=== PATIENT | female | born 1955 | race African-American/Black ===

== ENCOUNTER → 2016-06-05 | Outpatient (CLI) | payer MEDICARE, MEDICAID ==
[~2016-06-05] MED LIST: ACTOS 15MG TAB15 MG PO; ADVAIR 100/28 DISKU1 IH; ASPIRIN E.C. 8181 MG PO; ATIVAN 0.50.5 MG/TAB PO; CARAFATE 1GM1 G PO; GLUCOPHAGE1000 MG PO; IBU800 M1 PO; LANTUS100 U/ML SQ; METFORMIN850 MG PO; MIRALAX PA17 GM/Dose PO; MOTRIN800 MG PO; NAPROXEN 3375 MG/TAB PO; NEXIUM 20MG20 MG PO; NORCO 325 MG-51 TAB PO; NOVOLOG 100U100 U/M1 SQ; PERCOCET 325 MG1 TA2 PO; PRINIVIL20 MG PO; SENOKOT S 50 MG1 TAB PO; ULTRAM 50MG TAB50 MG PO; VALIUM 5MG T5 MG/TAB PO; ZOFRAN 4MG T4 MG/TAB PO
== END ==
LOC: COL.RAD 11:26
DX: D44.0 Neoplasm of uncertain behavior of thyroid gland (principal); E01.0 Iodine-deficiency related diffuse (endemic) goiter; R63.5 Abnormal weight gain
CPT/HCPCS: A9516

== ENCOUNTER 2016-08-12 19:55 | Emergency (ER) | payer MEDICARE, MEDICAID ==
[~2016-08-12] VITALS: Ht 157.5 cm; Wt 86.4 kg
[2016-08-12 20:02] VITALS: TEMP 97.1
[2016-08-12 20:31] LABS: BASO # 0.1 (0.0-0.2); BASO % 0.6 % (0.0-2.0); EOS # 0.5 (0.0-0.7); EOS % 4.1 % (0-4.0); GRAN # 7.9 (1.4-6.5); GRAN % 62.3 % (42.2-75.2); HEMATOCRIT 39.6 % (37.0-47.0); LYMPH # 3.5 (1.2-3.4); LYMPH % 27.8 % (20.0-51.0); MEAN CELL VOLUME 85 fl (80.0-100.0); MEAN CORPUSCULAR HEMOGLOBIN 28 pg (27.0-31.0); MEAN CORPUSCULAR HGB CONC 33 g/dl (33.0-37.0); MEAN PLATELET VOLUME 9.1 fl (7.4-10.4); MONO # 0.6 (0.1-0.6); MONO % 4.8 % (1.7-9.3); PLATELET COUNT 307 K/mm3 (130-400); RED BLOOD COUNT 4.66 M/mm3 (4.10-5.30); REDCELL DISTRIBUTION WIDTH-CV 14.3 % (11.5-14.5); WHITE BLOOD COUNT 12.7 K/mm3 (4.8-10.8)
[2016-08-12 20:42] LABS: INR 0.9 (0.8-3.0); PROTHROMBIN TIME 10.1 SECONDS (9.7-12.8)
[2016-08-12 20:45] LABS: PARTIAL THROMBOPLASTIN TIME 27.5 SECONDS (26.0-37.0)
[2016-08-12 20:58] LABS: ADJUSTED CALCIUM 8.8 mg/dL (8.4-10.2); ALANINE AMINOTRANSFERASE 30 U/L (9-52); ALBUMIN 3.7 gm/dL (3.5-5.0); ALKALINE PHOSPHATASE 93 U/L (50-136); ANION GAP 11 mmol/L (7-16); BILIRUBIN,TOTAL 0.5 mg/dL (0.0-1.0); BLOOD UREA NITROGEN 17 mg/dL (7-17); C-REACTIVE PROTEIN 2.2 mg/dL (0.0-0.9); CALCIUM 8.6 mg/dL (8.4-10.2); CARBON DIOXIDE 29 mmol/L (22-30); CHLORIDE 102 mmol/L (98-107); CREATININE, serum 0.92 mg/dL (0.52-1.25); GLUCOSE 152 mg/dL (74-106); POTASSIUM 3.9 mmol/L (3.4-5.0); SODIUM 142 mmol/L (137-145)
[2016-08-12 21:07] LABS: TROPONIN-I < 0.012 ng/mL (0.000-0.034)
[2016-08-12] MEDS ORDERED: NORCO 325 MG-51 TAB PO (23:12)
[2016-08-12 23:35] VITALS: BP 130/82; PULSE 81
== END 2016-08-12 23:36 | disposition home or self-care (01) ==
LOC: COL.ER 19:55
PROVIDERS: Family Medicine
DX: R07.9 Chest pain, unspecified (principal); M25.511 Pain in right shoulder; I10 Essential (primary) hypertension; E11.9 Type 2 diabetes mellitus without complications; K21.9 Gastro-esophageal reflux disease without esophagitis
CPT/HCPCS: A9284; J2270; Q9967

== ENCOUNTER 2016-12-12 14:15 | Outpatient (RCR) | payer MEDICARE, MEDICAID | END 2017-01-16 | disposition home or self-care (01) | LOC: WSST | DX: R49.0 Dysphonia (principal) | CPT/HCPCS: G9171-GN; G9172-GN ==

== ENCOUNTER 2017-04-12 22:37 | Emergency (ER) | payer MEDICARE, MEDICAID ==
[~2017-04-12] VITALS: Ht 157.5 cm; Wt 84.1 kg
[2017-04-12 22:45] VITALS: BP 141/67; TEMP 97
[2017-04-13] MEDS ORDERED: CEPHALEXIN500 M1 PO (00:40)
[2017-04-13] MEDS ORDERED: ULTRAM 50MG TAB50 MG PO (00:40)
[2017-04-13] MEDS ORDERED: CELEBREX 200MG200 MG PO (01:02)
[2017-04-13] MEDS ORDERED: TRULICITY1.5 MG/0.5 SQ (01:02)
[2017-04-13 01:14] VITALS: PULSE 71
== END 2017-04-13 01:14 | disposition home or self-care (01) ==
LOC: COL.ER 22:37
DX: L02.214 Cutaneous abscess of groin (principal); E11.9 Type 2 diabetes mellitus without complications; I10 Essential (primary) hypertension; E78.5 Hyperlipidemia, unspecified; Z86.73 Personal history of transient ischemic attack (TIA), and cerebral infarction without residual deficits; Z90.89 Acquired absence of other organs; Z98.51 Tubal ligation status; Z87.891 Personal history of nicotine dependence; Z79.82 Long term (current) use of aspirin; Z79.4 Long term (current) use of insulin

== ENCOUNTER → 2017-04-18 | Outpatient (CLI) | payer MEDICARE, MEDICAID ==
[~2017-04-18] MED LIST changes: +CELEBREX 200MG200 MG PO; +CEPHALEXIN500 M1 PO; +TRULICITY1.5 MG/0.5 SQ
== END ==
LOC: MC.RAD 13:20
DX: Z12.31 Encounter for screening mammogram for malignant neoplasm of breast (principal); N64.89 Other specified disorders of breast

== ENCOUNTER → 2017-04-23 | Outpatient (CLI) | payer MEDICARE, MEDICAID | LOC: MC.RAD 09:26 | DX: N64.89 Other specified disorders of breast (principal) ==

== ENCOUNTER → 2017-05-15 | Outpatient (CLI) | payer MEDICARE, MEDICAID | LOC: MC.RAD 08:07 | DX: N63.20 Unspecified lump in the left breast, unspecified quadrant (principal); Z98.82 Breast implant status ==

== ENCOUNTER 2018-01-22 12:28 | Emergency (ER) | payer MEDICARE ==
[~2018-01-22] VITALS: Ht 157.5 cm; Wt 86.4 kg
[2018-01-22 13:28] LABS: HEMOGLOBIN 13.5 g/dl (12.5-16.0); MEAN CELL VOLUME 84 fl (80.0-100.0); MEAN CORPUSCULAR HEMOGLOBIN 28 pg (27.0-31.0); MEAN CORPUSCULAR HGB CONC 34 g/dl (33.0-37.0); MEAN PLATELET VOLUME 9.8 fl (7.4-10.4); PLATELET COUNT 269 K/mm3 (130-400); RED BLOOD COUNT 4.76 M/mm3 (4.10-5.30); REDCELL DISTRIBUTION WIDTH-CV 14.6 % (11.5-14.5)
[2018-01-22 13:35] LABS: ALBUMIN 3.5 gm/dL (3.5-5.0); BILIRUBIN,TOTAL 0.7 mg/dL (0.0-1.0); CREATININE, serum 0.99 mg/dL (0.52-1.25); POTASSIUM 3.9 mmol/L (3.4-5.0); TOTAL PROTEIN 6.9 gm/dL (6.4-8.2)
[2018-01-22 13:49] LABS: BAND 26 % (0-10); LYMPHOCYTE 4 % (20.0-51.0); NEUTROPHILS 66 % (42.0-75.2); PLATELET ESTIMATE NORMAL (NORMAL)
[2018-01-22 14:09] LABS: MUCOUS Present /lpf; PH 6 (5-8); SQUAMOUS EPITHELIAL None Seen /hpf; URINE APPEARANCE Clear; URINE BACTERIA None Seen /hpf; URINE BILIRUBIN Negative (NEGATIVE); URINE BLOOD 1+ (NEGATIVE); URINE COLOR Yellow; URINE GLUCOSE Negative (NEGATIVE); URINE KETONE Negative (NEGATIVE); URINE LEUKOCYTE ESTERASE Negative (NEGATIVE); URINE NITRATE Negative (NEGATIVE); URINE PROTEIN(semi-quant) Negative (NEGATIVE); URINE UROBILINOGEN Negative (NEGATIVE)
[2018-01-22 14:18] LABS: COLLECTION METHOD CATHETER
[2018-01-22 14:39] LABS: ARTERIAL BLD GAS O2 SATURATION 95.4 % (92-100); ARTERIAL BLOOD GAS BASE EXCESS -3.1 (-2-2); ARTERIAL BLOOD GAS HCO3 20.2 meq/L (22-26); ARTERIAL BLOOD GAS PCO2 30.8 mmHg (35-45); ARTERIAL BLOOD GAS PO2 80.1 mmHg (80-100); ARTERIAL BLOOD GAS pH 7.43 (7.35-7.45)
[2018-01-22] MEDS ORDERED: ROXICODONE 55 MG/TAB PO (15:03)
[2018-01-22] MEDS ORDERED: NATURAL SENNA8.6 MG PO (15:04)
[2018-01-22] MEDS ORDERED: MAGNESIUM250 M1 PO (15:04)
[2018-01-22] MEDS ORDERED: DOXYCYCLINE 10100 MG PO (15:04)
[2018-01-22] MEDS ORDERED: LINZESS145CAP (15:05)
[2018-01-22] MEDS ORDERED: FEMARA PO (15:05)
[2018-01-22] MEDS ORDERED: LIPITOR 40MG TA40 MG PO (15:06)
[2018-01-22] MEDS ORDERED: IBU800 M1 PO (15:07)
[2018-01-22 17:40] VITALS: TEMP 100.1
[2018-01-22 19:52] VITALS: BP 121/67; PULSE 118
== END 2018-01-22 19:52 | disposition other institution (70) ==
LOC: COL.ER 12:28
PROVIDERS: Emergency Medicine
DX: A41.9 Sepsis, unspecified organism (principal); I10 Essential (primary) hypertension; E11.9 Type 2 diabetes mellitus without complications; J45.909 Unspecified asthma, uncomplicated; G47.33 Obstructive sleep apnea (adult) (pediatric); K21.9 Gastro-esophageal reflux disease without esophagitis; Z79.891 Long term (current) use of opiate analgesic; Z79.1 Long term (current) use of non-steroidal anti-inflammatories (NSAID); Z79.4 Long term (current) use of insulin
CPT/HCPCS: J0692; J1170; J3370; J7030; J7040; J7050; Q9967

== ENCOUNTER 2018-08-07 11:36 | Inpatient (IN) | payer MEDICARE ==
[~2018-08-07] VITALS: Ht 157.5 cm; Wt 95.3 kg
[2018-08-07] VITALS (342 sets, daily range): BP systolic 154–164; BP diastolic 65–72; PULSE 108–125; TEMP 100.1–102.4; O2SAT 92–100
[~2018-08-07 11:36] MED LIST changes: +DOXYCYCLINE 10100 MG PO; +FEMARA PO; +LINZESS145CAP; +LIPITOR 40MG TA40 MG PO; +MAGNESIUM250 M1 PO; +NATURAL SENNA8.6 MG PO; +ROXICODONE 55 MG/TAB PO
[2018-08-07] MEDS ORDERED: TYLENOL 500MG500 MG PO (12:38)
[2018-08-07 13:08] LABS: BILIRUBIN,TOTAL 0.9 mg/dL (0.0-1.0); CALCIUM 9.6 mg/dL (8.4-10.2); CREATININE, serum 0.96 (0.52-1.25); POTASSIUM 4.1 mmol/L (3.4-5.0); TOTAL PROTEIN 7.8 gm/dL (6.4-8.2)
[2018-08-07 13:16] LABS: HEMOGLOBIN 15.2 g/dl (12.5-16.0); MEAN CELL VOLUME 85 fl (80.0-100.0); MEAN CORPUSCULAR HEMOGLOBIN 28 pg (27.0-31.0); MEAN CORPUSCULAR HGB CONC 33 g/dl (33.0-37.0); MEAN PLATELET VOLUME 9.6 fl (7.4-10.4); PLATELET COUNT 247 K/mm3 (130-400); RED BLOOD COUNT 5.42 M/mm3 (4.10-5.30); REDCELL DISTRIBUTION WIDTH-CV 16.5 % (11.5-14.5)
[2018-08-07 13:29] LABS: COLLECTION METHOD CATHETER
[2018-08-07 13:45] LABS: MUCOUS Present /lpf; PH 7 (5-8); SQUAMOUS EPITHELIAL 0-2 /hpf; URINE APPEARANCE Clear; URINE BACTERIA None Seen /hpf; URINE BILIRUBIN Negative (NEGATIVE); URINE BLOOD Negative (NEGATIVE); URINE COLOR Yellow; URINE GLUCOSE Negative (NEGATIVE); URINE KETONE Negative (NEGATIVE); URINE LEUKOCYTE ESTERASE Negative (NEGATIVE); URINE NITRATE Negative (NEGATIVE); URINE PROTEIN(semi-quant) 1+ (NEGATIVE)
[2018-08-07 13:53] LABS: ANISOCYTOSIS 1+; BAND 1 % (0-10); LYMPHOCYTE 7 % (20.0-51.0); NEUTROPHILS 92 % (42.0-75.2); PLATELET ESTIMATE NORMAL (NORMAL)
[2018-08-07] MEDS ORDERED: PROTONIX 40MG T40 MG PO (15:26)
[2018-08-07] MEDS ORDERED: B COMPLEX #11 TA1 PO (15:27)
[2018-08-07] MEDS ORDERED: THE MEDICINE S200 M2 PO (15:28)
[2018-08-07] MEDS ORDERED: NOVOLOG 100U100 U/M1 SQ (15:28)
[2018-08-07] MEDS ORDERED: MULTI VITAMINS1 TAB PO (15:28)
--- NOTE | 2018-08-07 17:03 | NUR ---
Report recieved from SHASTA Henson
--- NOTE | 2018-08-07 17:08 | NUR ---
Pt in ED - will go to CT scan for CT Head and Spinal prior to coming to ICU.
--- NOTE | 2018-08-07 18:00 | NUR ---
Pt arrived on ED cart with CUPS and SHASTA Henson. MD Juanpbalo and MD Kevin here as pt arrived to assess. Pt unable to move self to ICU bed - slideboard utilized without pulling lines or difficulty. Pt unable to verbally acknowledge or deny questions - pt does move head to answer yes or no. Pt exhibiting neck stiffness but able to lift head off bed and move side to side while moaning. Droplet isolation precautions followed. Pupils PERRLA with no jaundice. Mouth dry without mucosa integrity breakdown. Bra removed to assess bilateral breast masectomy site - skin dry, intact, no drainage or tenderness. Bilateral breast TAL drains draining straw colored fluids, insertion site CDI. Abdomen soft, Bowel sounds all 4quadrants, no tenderness on palpation. Extremity cap-refill <3sec. 2+ pedal/radial pulses. S1S2 heart sounds, tachycardia noted (MD Juanpablo aware of tachycardia). Lumbar puncture site stable with no drainage, bandaid in place is CDI. All Skin intact without pressure injuries or breakdown. at bedside, notified of ICU policy regarding visiting hours. Alvarez catheter insertion attempt unsucessful, sterile precautions kept without breach. PICC insertion site stable, CDI, with JANI bandage in place. Both ports draw and flush with ease. Bedside report given to SHASTA Youssef at 1915, reminded of visiting hour policy. Call light within reach
[2018-08-07 18:37] LABS: INR 1.2 (0.8-3.0); PROTHROMBIN TIME 13.1 SECONDS (9.7-12.8)
[2018-08-07 18:38] LABS: GLUCOSE,CSF 77 mg/dL (40-70); TOTAL PROTEIN,CSF 36 mg/dL (15-45)
[2018-08-07 19:20] LABS: CSF APPEARANCE CLEAR; CSF COLOR COLORLESS; CSF RBC 8 /mm3 (0-0)
[2018-08-07 19:21] LABS: CSF APPEARANCE CLEAR; CSF COLOR COLORLESS; CSF RBC 1 /mm3 (0-0)
[2018-08-07 19:25] LABS: CSF MONONUCLEAR 100 % (70-100); CSF MONONUCLEAR 75 % (70-100); CSF POLYMORPHONUCLEAR 0 % (0-6); CSF POLYMORPHONUCLEAR 25 % (0-6)
--- NOTE | 2018-08-07 19:45 | NUR ---
Assessment complete; Patient drowsy but will follow verbal commands. Will attempt to respond verbally to questions but speech is incomprehensable. at bedside. T 102.4. Has several blankets on and room is warm. Removed and blanket and placed a cool cloth on forehead. Will continue to monotir.
--- NOTE | 2018-08-07 20:30 | NUR ---
Temp rechecked and was 100.2 axillary. Will continue to monitor.
[2018-08-07] MEDS ORDERED: VITAMIN D 1001000 IU PO (20:59)
--- NOTE | 2018-08-07 23:08 | NUR ---
PT PLACED ON OUR HOME AUTO CPAP UNIT AT THIS TIME PER POLICY. PT STATES THAT SHE IS NON-COMPLIANT AT HOME, HOWEVER, SHE WILL WEAR OUR HOME CPAP UNIT DURING HER STAY. HUMIDITY IN PLACE, MEDIUM MASK USED GOOD FIT, PLUGGED UNIT INTO RED OUTLET.
[2018-08-08] VITALS (1434 sets, daily range): BP systolic 116–156; BP diastolic 70–81; PULSE 77–110; TEMP 98–99.7; O2SAT 90–100
--- NOTE | 2018-08-08 00:05 | NUR ---
Assessment complete; Awakens on commands and will follow instructions, however continues to be drowsy and weak, and not communicating verbally. Occasionally heard making quiet moaning noises when performing cares. However appears to rest comfortably when not disturbed. Currenlty on CPAP. Will continue to monitor.
[2018-08-08 00:35] LABS: TRICYCLIC ANTIDEPRESS URINE NEGATIVE
--- NOTE | 2018-08-08 01:00 | NUR ---
E-Icu notified that patient had temp of 102.4 at 1999. Has since come down to 99.4. No orders at this time.
[2018-08-08 05:13] LABS: MEAN CELL VOLUME 86 fl (80.0-100.0); MEAN CORPUSCULAR HGB CONC 32 g/dl (33.0-37.0); MEAN PLATELET VOLUME 9.8 fl (7.4-10.4); PLATELET COUNT 208 K/mm3 (130-400); RED BLOOD COUNT 4.17 M/mm3 (4.10-5.30); REDCELL DISTRIBUTION WIDTH-CV 16.5 % (11.5-14.5)
[2018-08-08 05:18] LABS: INR 1.4 (0.8-3.0); PROTHROMBIN TIME 16.3 SECONDS (9.7-12.8)
[2018-08-08 05:25] LABS: HEMATOCRIT 35.8 % (37.0-47.0); HEMOGLOBIN 11.5 g/dl (12.5-16.0); MEAN CORPUSCULAR HEMOGLOBIN 28 pg (27.0-31.0)
[2018-08-08 05:27] LABS: ALANINE AMINOTRANSFERASE 27 U/L (9-52); ALBUMIN 2.6 gm/dL (3.5-5.0); ALKALINE PHOSPHATASE 82 U/L (50-136); ANION GAP 5 mmol/L (7-16); AST,SGOT 21 U/L (15-37); BLOOD UREA NITROGEN 15 mg/dL (7-17); CALCIUM 7.4 mg/dL (8.4-10.2); CARBON DIOXIDE 26 mmol/L (22-30); CHLORIDE 106 mmol/L (98-107); CREATININE, serum 1.05 (0.52-1.25); GLUCOSE 114 mg/dL (74-106); POTASSIUM 3.5 mmol/L (3.4-5.0); SODIUM 137 mmol/L (137-145); TOTAL PROTEIN 5.4 gm/dL (6.4-8.2)
[2018-08-08 05:39] LABS: C-REACTIVE PROTEIN 19.2 mg/dL (0.0-0.9); TROPONIN-I < 0.012 ng/mL (0.000-0.035)
--- NOTE | 2018-08-08 05:39 | NUR ---
Notified E-Icu of WBC count of 28 this am. Reported pt is on antibiotics and blood cultures were drawn 08/07/18.
--- NOTE | 2018-08-08 06:25 | NUR ---
Dr. Brown at bedside to see patient.
--- NOTE | 2018-08-08 07:00 | NUR ---
Bedside report received from SHASTA Youssef.
--- NOTE | 2018-08-08 07:20 | NUR ---
Bedside report given to SHASTA Lao. Patient care transfered.
[2018-08-08 07:35] LABS: BAND 13 % (0-10); LYMPHOCYTE 9 % (20.0-51.0); NEUTROPHILS 73 % (42.0-75.2); PLATELET ESTIMATE NORMAL (NORMAL)
[2018-08-08 07:36] LABS: ANISOCYTOSIS 1+
[2018-08-08 07:40] LABS: MAGNESIUM 1.5 mg/dL (1.6-2.3); PHOSPHOROUS 3.7 mg/dL (2.5-4.5)
--- NOTE | 2018-08-08 07:42 | NUR ---
Lexis, speech therapy here to work with patient.
--- NOTE | 2018-08-08 08:00 | NUR ---
Assessment complete, patient resting quietly with at bedside. Patient reports pain to right breast, bilateral alma drains in place, specimens sent to lab from both (marked right and left.) AM care complete, patient repositioned for comfort. Call light within reach.
--- NOTE | 2018-08-08 09:27 | NUR ---
Initial visit; Human Services Assistant introduced herself and informed patient and of the availability of spiritual care. Patient's Jet Inspector has been contacted and Human Services Assistant is available at their request.
--- NOTE | 2018-08-08 15:26 | NUR ---
ANGELA student met with patient and patient's (Giuliano) to complete intake. Patient lives in [place] with her . Patient's PCP is Dr. Appiah and she receives her medications from the [facility] in [place]. Patient does not regularly use any assistive devices and reports independence with ADLs prior to hospitalization. Patient states she does not have a completed DPOA-HC and was not interested in completing one at this time as her is legal next of kin and she would want him to make the decisions in those situations. ANGELA student discussed the possibility of a short rehab stay at a custodial facility upon discharge if doctor and PT recommend. Patient and Patient's did not want to discuss skilled facilities at this time. ANGELA to continue to follow.
--- NOTE | 2018-08-08 18:00 | NUR ---
Bilateral alma drains pulled, tips intact, sites cleaned with chloraprep, gauze and foam tape applied to both. Right site had purulent drainage noted from site.
--- NOTE | 2018-08-08 19:44 | NUR ---
Bedside report given to SHASTA Bullock.
--- NOTE | 2018-08-08 20:00 | NUR ---
Shift assessment complete at this time. Plan of care reviewed at bedside with patient et family. Additional time taken to address any other needs or concerns. Vitals stable at this time. Reports R side pain, see EMAR for pain medication documentation. Denies any other discomforts. Will continue to monitor.
[2018-08-09] VITALS (525 sets, daily range): BP systolic 117–121; BP diastolic 60–73; PULSE 74–85; TEMP 97.8–98.1; O2SAT 85–100
--- NOTE | 2018-08-09 | NUR ---
Shift reassessment complete at this time. No changes from previous assessment. Vitals stable. Reports minor 1-2/10 R side pain and declines any intervention at this time. Pt denies any other discomforts at this moment. Will continue to monitor.
--- NOTE | 2018-08-09 04:00 | NUR ---
Shift reassessment complete at this time. No changes from previous assessment noted. Vitals stable. Pt reports moderate R side pain at 5/10 severity, see EMAR documentation for medication intervention. Denies any other discomforts. Will continue to monitor.
[2018-08-09 05:04] LABS: ARTERIAL BLD GAS TCO2 CT 21.9; ARTERIAL BLOOD GAS BASE EXCESS -3.8 (-2-2); ARTERIAL BLOOD GAS HCO3 20.8 meq/L (22-26); ARTERIAL BLOOD GAS PCO2 36.5 mmHg (35-45); ARTERIAL BLOOD GAS PO2 69.5 mmHg (80-100); ARTERIAL BLOOD GAS pH 7.37 (7.35-7.45)
[2018-08-09 05:10] LABS: BASO # 0.1 (0.0-0.2); BASO % 0.3 % (0.0-2.0); EOS # 0.5 (0.0-0.7); GRAN # 14.3 (1.4-6.5); GRAN % 83.1 % (42.2-75.2); HEMOGLOBIN 10.4 g/dl (12.5-16.0); LYMPH # 1.8 (1.2-3.4); LYMPH % 10.1 % (20.0-51.0); MEAN CELL VOLUME 87 fl (80.0-100.0); MEAN CORPUSCULAR HEMOGLOBIN 28 pg (27.0-31.0); MEAN CORPUSCULAR HGB CONC 32 g/dl (33.0-37.0); MEAN PLATELET VOLUME 9.4 fl (7.4-10.4); MONO # 0.5 (0.1-0.6); PLATELET COUNT 161 K/mm3 (130-400); RED BLOOD COUNT 3.76 M/mm3 (4.10-5.30); REDCELL DISTRIBUTION WIDTH-CV 16.9 % (11.5-14.5)
[2018-08-09 05:11] LABS: HEMATOCRIT 32.7 % (37.0-47.0)
[2018-08-09 05:18] LABS: INR 1.3 (0.8-3.0); PROTHROMBIN TIME 14.2 SECONDS (9.7-12.8)
[2018-08-09 05:23] LABS: ALBUMIN 2.4 gm/dL (3.5-5.0); BILIRUBIN,TOTAL 0.4 mg/dL (0.0-1.0); CALCIUM 7.6 mg/dL (8.4-10.2); CREATININE, serum 0.94 (0.52-1.25); POTASSIUM 3.7 mmol/L (3.4-5.0); TOTAL PROTEIN 5.3 gm/dL (6.4-8.2)
--- NOTE | 2018-08-09 07:14 | NUR ---
Report received from Kobe VEGAS and care resumed.
--- NOTE | 2018-08-09 07:14 | NUR ---
Bedside report given to Misty, Beni.
--- NOTE | 2018-08-09 07:45 | NUR ---
Dr Tobar in to see pt at this time. Will plan to send pt to due to infected spacers. States will follow up with Dr Geronimo.
--- NOTE | 2018-08-09 08:15 | NUR ---
Dr Brown in to see pt at this time. No new orders received. He agrees for pt to transfer to .
--- NOTE | 2018-08-09 10:30 | NUR ---
Dr Geronimo in to see pt. Will work on transfer to .
--- NOTE | 2018-08-09 10:55 | NUR ---
Accepting doctor and bed placement received from transfer pickering[place]. adelaide [employer] quality control technician notified and will arrange transportation.
--- NOTE | 2018-08-09 11:03 | NUR ---
Patient is supine in bed in no apparent distress. Patient is calm, awake, and alert. Assessment completed, patient oriented to person, place, and time. All invasive line assessed and secured. Patient reports 3/10 pain to her right chest around by her TAL drain removal site. Bilateral chest dressings are clean, dry and intact. Patient has no complaints or concerns at this time. Call light placed withinn reach. Bed lowered to lowest position.
--- NOTE | 2018-08-09 11:04 | NUR ---
SW attended clinical rounding. Patient is transfering to [facility].
--- NOTE | 2018-08-09 11:15 | NUR ---
Report called to SHASTA Lindo at [facility].
--- NOTE | 2018-08-09 11:30 | NUR ---
Report given to EMS and pt loaded onto [facility]. Pt left at this time for transfer to [facility]. was present and took all pt's belongings.
--- NOTE | 2018-08-09 11:45 | NUR ---
Initial visit; Neda recalls [employer] praying with her during a former visit and thanked [employer] for coming in to see her and keeping her in [employer]'s prayers.
== END 2018-08-09 11:30 | disposition short-term general hospital (02) | DRG 919 ==
LOC: COL.ER 11:36 → ICU 15:49
PROVIDERS: Emergency Medicine; Internal Medicine Pulmonary Disease; Physician Assistant; ADMIT Internal Medicine
PROC: 009U3ZX Drainage of Spinal Canal, Percutaneous Approach, Diagnostic (ICD-10-PCS; principal; 2018-08-07)
PROC: B01B1ZZ Fluoroscopy of Spinal Cord using Low Osmolar Contrast (ICD-10-PCS; 2018-08-07)
DX: T85.79XA Infection and inflammatory reaction due to other internal prosthetic devices, implants and grafts, initial encounter (principal); A41.9 Sepsis, unspecified organism; G93.41 Metabolic encephalopathy; R65.20 Severe sepsis without septic shock; E87.2 Acidosis; E87.3 Alkalosis; E11.65 Type 2 diabetes mellitus with hyperglycemia; Z79.4 Long term (current) use of insulin; I10 Essential (primary) hypertension; Z87.891 Personal history of nicotine dependence; G47.33 Obstructive sleep apnea (adult) (pediatric); E78.5 Hyperlipidemia, unspecified; Z85.3 Personal history of malignant neoplasm of breast; B96.89 Other specified bacterial agents as the cause of diseases classified elsewhere
CPT/HCPCS: 99239; A4314; C1751; C9113; J1644; J1815; J1885; J2405; J2543; J3370; J3475; J3480; J7030; J7050; Q9967

== ENCOUNTER 2019-11-10 19:41 | Emergency (ER) | payer MEDICARE ==
[~2019-11-10] VITALS: Ht 157.5 cm; Wt 96.4 kg
[~2019-11-10 19:41] MED LIST changes: +B COMPLEX #11 TA1 PO; +MULTI VITAMINS1 TAB PO; +PROTONIX 40MG T40 MG PO; +THE MEDICINE S200 M2 PO; +TYLENOL 500MG500 MG PO; +VITAMIN D 1001000 IU PO
[2019-11-10 20:15] VITALS: TEMP 97.9
[2019-11-10 21:09] LABS: BASO # 0.1 (0.0-0.2); BASO % 0.5 % (0.0-2.0); EOS # 0.4 (0.0-0.7); EOS % 3.6 % (0-4.0); GRAN # 7.4 (1.4-6.5); HEMATOCRIT 37.1 % (37.0-47.0); HEMOGLOBIN 11.8 g/dl (12.5-16.0); LYMPH # 3.1 (1.2-3.4); LYMPH % 27.1 % (20.0-51.0); MEAN CELL VOLUME 88 fl (80.0-100.0); MEAN CORPUSCULAR HEMOGLOBIN 28 pg (27.0-31.0); MEAN CORPUSCULAR HGB CONC 32 g/dl (33.0-37.0); MEAN PLATELET VOLUME 9.4 fl (7.4-10.4); MONO # 0.5 (0.1-0.6); MONO % 4.5 % (1.7-9.3); PLATELET COUNT 269 K/mm3 (130-400); REDCELL DISTRIBUTION WIDTH-CV 15.5 % (11.5-14.5)
[2019-11-10] MEDS ORDERED: COLCRYS0.6 MG PO (21:12)
[2019-11-10 21:18] LABS: ALBUMIN 3.5 gm/dL (3.5-5.0); BILIRUBIN,TOTAL 0.4 mg/dL (0.0-1.0); CALCIUM 8.3 mg/dL (8.4-10.2); CREATININE, serum 0.82 (0.52-1.25); TOTAL PROTEIN 6.7 gm/dL (6.4-8.2)
[2019-11-10 22:12] VITALS: BP 152/93; PULSE 80
== END 2019-11-10 22:13 | disposition home or self-care (01) ==
LOC: COL.ER 19:41
PROVIDERS: Emergency Medicine
DX: M25.462 Effusion, left knee (principal); E11.9 Type 2 diabetes mellitus without complications; E89.0 Postprocedural hypothyroidism; Z85.3 Personal history of malignant neoplasm of breast; Z86.73 Personal history of transient ischemic attack (TIA), and cerebral infarction without residual deficits; Z79.4 Long term (current) use of insulin

== ENCOUNTER → 2020-06-03 | Outpatient (CLI) | payer MEDICARE ==
[~2020-06-03] MED LIST changes: +COLCRYS0.6 MG PO
== END ==
LOC: COL.RAD 05-25 12:00
DX: E04.1 Nontoxic single thyroid nodule (principal)

== ENCOUNTER → 2020-06-04 | Outpatient (CLI) | payer MEDICARE | LOC: COL.RAD 09:00 | DX: E04.1 Nontoxic single thyroid nodule (principal) ==

== ENCOUNTER → 2020-06-30 | Outpatient (CLI) | payer MEDICARE ==
[~2020-06-30] VITALS: Ht 157.5 cm; Wt 100.8 kg
[~2020-06-30] MED LIST changes: +ALEVE 220MG220 MG PO; +LASIX 20MG TABL20 MG PO; +PRIL40 PO; +PROVENTIL0.09 MG/A1 IH
[2020-06-30 07:54] VITALS: BP 156/84; PULSE 79
[2020-06-30 07:58] VITALS: BP 164/84; PULSE 108
[2020-06-30 07:59] VITALS: BP 162/85; PULSE 104
[2020-06-30 08:00] VITALS: BP 137/76; PULSE 100
[2020-06-30 08:01] VITALS: BP 130/75; PULSE 99
[2020-06-30 09:00] VITALS: BP 143/78; PULSE 86
== END ==
LOC: COL.CARD 05:54
DX: R07.9 Chest pain, unspecified (principal)
CPT/HCPCS: A9500

== ENCOUNTER 2021-03-10 10:52 | Outpatient (CLI) | payer MEDICARE ==
[2021-03-10] VITALS (7 sets, daily range): BP systolic 122–155; BP diastolic 62–80; PULSE 48–79; TEMP 99.1
[~2021-03-10 10:52] MED LIST changes: -ALEVE 220MG220 MG PO; -PROVENTIL0.09 MG/A1 IH
[2021-03-10] MEDS ORDERED: ALEVE 220MG220 MG PO (12:16)
[2021-03-10] MEDS ORDERED: PROVENTIL0.09 MG/A1 IH (12:17)
== END 2021-03-10 13:05 | disposition home or self-care (01) ==
LOC: EUO 10:52
DX: R06.02 Shortness of breath (principal); R50.9 Fever, unspecified; R51.9 Headache, unspecified
CPT/HCPCS: M0243; Q0244

== ENCOUNTER 2021-07-25 15:26 | Observation (INO) | payer MEDICARE ==
[~2021-07-25] VITALS: Ht 160 cm; Wt 95.5 kg
[~2021-07-25 15:26] MED LIST changes: +ALEVE 220MG220 MG PO; +PROVENTIL0.09 MG/A1 IH; -VITAMIN D 1001000 IU PO; +VITAMIN D31000 I1 PO
[2021-07-25 16:24] LABS: INR 1.1 (0.8-3.0)
[2021-07-25 16:26] LABS: BASO # 0.1 K/mm3 (0.0-0.2); BASO % 0.5 % (0.0-2.0); EOS # 0.2 K/mm3 (0.0-0.7); EOS % 2.2 % (0.0-4.0); GRAN # 5.5 K/mm3 (1.4-6.5); GRAN % 59.5 % (42.2-75.2); HEMATOCRIT 40.5 % (37.0-47.0); HEMOGLOBIN 13.1 g/dl (12.5-16.0); LYMPH % 32.1 % (20.0-51.0); MEAN CELL VOLUME 83 fl (80.0-100.0); MEAN CORPUSCULAR HEMOGLOBIN 27 pg (27-31); MEAN CORPUSCULAR HGB CONC 32 g/dl (33.0-37.0); MEAN PLATELET VOLUME 9.6 fl (7.4-10.4); MONO # 0.5 K/mm3 (0.1-0.6); MONO % 5.5 % (1.7-9.3); PLATELET COUNT 294 K/mm3 (130-400); RED BLOOD COUNT 4.88 M/mm3 (4.10-5.30); REDCELL DISTRIBUTION WIDTH-CV 16.4 % (11.5-14.5)
[2021-07-25 16:27] LABS: PARTIAL THROMBOPLASTIN TIME 28.2 SECONDS (26.0-37.0)
[2021-07-25 16:29] LABS: ALANINE AMINOTRANSFERASE 26 U/L (0-55); ALBUMIN 3.5 gm/dL (3.4-4.8); ALKALINE PHOSPHATASE 112 U/L (40-150); ANION GAP 10 mmol/L (7-16); AST,SGOT 20 U/L (5-34); BILIRUBIN,TOTAL 0.5 mg/dL (0.2-1.2); BLOOD UREA NITROGEN 14 mg/dL (10-20); CALCIUM 8.8 mg/dL (8.4-10.2); CARBON DIOXIDE 28 mmol/L (23-31); CHLORIDE 105 mmol/L (98-107); CREATININE, serum 1.02 mg/dL (0.57-1.11); GLUCOSE 122 mg/dL (70-99); POTASSIUM 3.8 mmol/L (3.5-4.5); SODIUM 143 mmol/L (136-145); TOTAL PROTEIN 7.1 gm/dL (6.2-8.1)
[2021-07-25 16:36] LABS: TROPONIN-I < 0.010 ng/mL (0.00-0.033)
[2021-07-25] MEDS ORDERED: NEURONTIN100 MG/CAP (18:34)
[2021-07-25] MEDS ORDERED: PRINIVIL40 MG PO (19:03)
[2021-07-25] MEDS ORDERED: VITAMINC1000TA (19:06)
[2021-07-25 20:09] VITALS: BP 150/70; PULSE 69; TEMP 98.1
[2021-07-25] MEDS ORDERED: IBU800 M1 PO (20:22)
--- NOTE | 2021-07-25 22:45 | NUR ---
PT TRANSFERRED TO MEDICAL FLOOR AT 1999 FROM ED BY ED STAFF TO ROOM 317, PT ABLE TO AMBULATE WITHOUT ASSISTANCE, HEP GTT INFUSING AT 1000U/HR TO RAC, NEXT HEPXA IN [facility] ORDER AT 0015, PT A/OX4, ROOM AIR, PT SYSTOLIC HYPERTENSIVE, PT ASYMPTOMATIC, PT STATES SHE REQUIRES 2L NC HS, NC PROVIDED. PT HAS NITROGLYCERIN PATCH OVER R UPPER CHEST, PT DENIES PAIN,N,V. PT REPORTS SOA ON AMBULATION. PT REPORTS CONSITPATION. TELE ON. PT RYTHM NSR RATE <80. MED REC COMPLETE. ASSESMENT COMPLETE. PT ORIENTED TO FLOOR AND HOSPITAL POLICY. PT POC D/W PT. PT VERBALIZES UNDERSTANDING. ALL NEEDS MET THUS FAR. ALL QUESTIONS/CONCERNS ANSWERED. ALL NEEDS MET THUS FAR. CALL LIGHT WITHIN REACH.
[2021-07-26] VITALS (7 sets, daily range): BP systolic 106–143; BP diastolic 57–73; PULSE 64–83; TEMP 97.5–98.2
--- NOTE | 2021-07-26 01:15 | NUR ---
pt hepxa back at 0.56, per protocol reduce 100, hep gtt now infusing at 900u/hr to lac. Next hepxa at 0615 this am.
--- NOTE | 2021-07-26 04:55 | NUR ---
PT REPORTS TO NURSE SHE HAS A HEADACHE AND A FOOT CRAMP AND ALIGNS THAT WITH HYPERGYLCEMIA. PT BS CHECKED. BS 165. PT ON SSI LOW. NO INTERVENTIONS AT THIS TIME.
--- NOTE | 2021-07-26 05:38 | NUR ---
PT DENIES CHEST PAIN,N,V,D, SOA WHILE STATIONARY. PT REMAINS SOA ON AMBULATION. HEP GTT CONTINUES TO INFUSE AT 900U/HR TO LAC. NEXT HEPXA AT 0615 PENDING. ALL NEEDS MET THIS SHIFT. CALL LIGHT WITHIN REACH.
[2021-07-26 06:33] LABS: BASO # 0.1 K/mm3 (0.0-0.2); BASO % 0.7 % (0.0-2.0); EOS # 0.3 K/mm3 (0.0-0.7); GRAN # 4.9 K/mm3 (1.4-6.5); GRAN % 57.2 % (42.2-75.2); HEMATOCRIT 38.3 % (37.0-47.0); LYMPH # 2.9 K/mm3 (1.2-3.4); LYMPH % 33.6 % (20.0-51.0); MEAN CELL VOLUME 87 fl (80.0-100.0); MEAN CORPUSCULAR HEMOGLOBIN 27 pg (27-31); MEAN CORPUSCULAR HGB CONC 31 g/dl (33.0-37.0); MEAN PLATELET VOLUME 9.8 fl (7.4-10.4); MONO # 0.5 K/mm3 (0.1-0.6); MONO % 5.3 % (1.7-9.3); PLATELET COUNT 256 K/mm3 (130-400); REDCELL DISTRIBUTION WIDTH-CV 16.6 % (11.5-14.5)
[2021-07-26 06:48] LABS: CALCIUM 8.2 mg/dL (8.4-10.2); CREATININE, serum 0.93 mg/dL (0.57-1.11); POTASSIUM 3.6 mmol/L (3.5-4.5)
--- NOTE | 2021-07-26 08:15 | NUR ---
HepXa 0.50, decrease by 100un/hr TRA 8ml/hr, next HepXa level at 1500
--- NOTE | 2021-07-26 08:51 | NUR ---
Assessment completed, alert/oriented, vital signs stable, reports very mild chest discomfort at this time, heart RRR/ SR on tele, Cardiology scheduled and I have notified them, she denies dyspnea at this time but does report dyspnea with exertion and when the pain is worse, lungs CTA throughout, she is on heparin gtt and monitorin/adjusting per protocol, she is NPO for possible stress test, fmaily present in the room, she denies needs, will continue to monitor
--- NOTE | 2021-07-26 09:39 | NUR ---
Initial visit; Patient thanked [employer] for looking in on her and offering God's blessings and keeping her in [employer]'s prayers.
--- NOTE | 2021-07-26 13:24 | NUR ---
Financial Advisor met with patient and her , Giuliano (ph#[phone]) to discuss discharge planning. Esthela lives in [place] with her and sees Dr. Randle for primary care. Patient obtains medications from [facility] in or through the [facility] program. Patient does not use any DME and is independent with ADLS. Patient states she has completed DPOA-HC and designated her . Patient plans to return home at time of discharge. Patient is interested is speaking with the financial counselor about financial assistance for her hospital bill. SW consulted Nickolas Financial Counselor. Discharge Plan: Home
--- NOTE | 2021-07-26 20:50 | NUR ---
Patient is resting in bed with aside. Alert and oriented x 4, VSS. Complains of chest pain 4/10 but refuses nitro, asked for Tylenol. Provided. Telemetry in place NSR 60's, 2L O2 NC. Left arm weakness. Assessment completed, medications provided. No other needs at this time. Call light within reach.
--- NOTE | 2021-07-26 22:50 | NUR ---
Pt complains of nausea, zofran provided.
[2021-07-27] VITALS (9 sets, daily range): BP systolic 119–133; BP diastolic 70–85; PULSE 64–106; TEMP 97.5–98.4
--- NOTE | 2021-07-27 05:50 | NUR ---
Pt has been stable along the night. Continues reporting pain in her chest but states she does not know if it is internal or external. Telemetry has been shown NSR. Report will be given to day RN.
--- NOTE | 2021-07-27 08:00 | NUR ---
Shift assessment complete. Pt resting in bed A&Ox4. Heart RRR. Vitals stable. Reports aching pain in chest /, requested tylenol and given per orders. Denies further needs at this time. Going downstairs for LexiScan at this time.
[2021-07-27] MEDS ORDERED: NITROSTAT0.4 MG/TAB SL (12:31)
--- NOTE | 2021-07-27 14:00 | NUR ---
Discharge instructions discussed w/pt and and all questions answered. IV to right AC removed w/tip intact. Pt escorted out w/all belongings via wheelchair at this time.
== END 2021-07-27 14:00 | disposition home or self-care (01) ==
LOC: COL.ER 15:26 → MEDICAL 18:14
PROVIDERS: Family Medicine; Student in an Organized Health Care Education/Training Program; ADMIT Internal Medicine
DX: R07.9 Chest pain, unspecified (principal); R06.02 Shortness of breath; R06.09 Other forms of dyspnea; R60.0 Localized edema; K59.00 Constipation, unspecified; E11.65 Type 2 diabetes mellitus with hyperglycemia; E11.40 Type 2 diabetes mellitus with diabetic neuropathy, unspecified; G47.33 Obstructive sleep apnea (adult) (pediatric); I10 Essential (primary) hypertension; K21.9 Gastro-esophageal reflux disease without esophagitis; E78.5 Hyperlipidemia, unspecified; C50.919 Malignant neoplasm of unspecified site of unspecified female breast; Z79.899 Other long term (current) drug therapy; Z90.10 Acquired absence of unspecified breast and nipple; Z79.4 Long term (current) use of insulin
CPT/HCPCS: A9500; G0378; J1644; J1650; J2405; J2785

== ENCOUNTER 2022-07-25 17:21 | Observation (INO) | payer MEDICARE ==
[~2022-07-25] VITALS: Ht 157.5 cm; Wt 92.6 kg
[~2022-07-25 17:21] MED LIST changes: +NEURONTIN100 MG/CAP; +NITROSTAT0.4 MG/TAB SL; +PRINIVIL40 MG PO; +VITAMINC1000TA
[2022-07-25 18:08] LABS: BASO # 0.1 K/mm3 (0.0-0.2); BASO % 0.7 % (0.0-2.0); EOS # 0.4 K/mm3 (0.0-0.7); EOS % 4.6 % (0.0-4.0); GRAN # 5.9 K/mm3 (1.4-6.5); GRAN % 63.9 % (42.2-75.2); HEMATOCRIT 42.4 % (37.0-47.0); LYMPH # 2.3 K/mm3 (1.2-3.4); LYMPH % 25.2 % (20.0-51.0); MEAN CELL VOLUME 85 fl (80.0-100.0); MEAN CORPUSCULAR HEMOGLOBIN 28 pg (27-31); MEAN CORPUSCULAR HGB CONC 33 g/dl (33.0-37.0); MEAN PLATELET VOLUME 9.6 fl (7.4-10.4); MONO # 0.5 K/mm3 (0.1-0.6); MONO % 5.4 % (1.7-9.3); PLATELET COUNT 289 K/mm3 (130-400); RED BLOOD COUNT 5.01 M/mm3 (4.10-5.30); REDCELL DISTRIBUTION WIDTH-CV 16.1 % (11.5-14.5)
[2022-07-25 18:38] LABS: ALANINE AMINOTRANSFERASE 32 U/L (0-55); ALBUMIN 3.3 gm/dL (3.4-4.8); ALKALINE PHOSPHATASE 129 U/L (40-150); ANION GAP 12 mmol/L (7-16); AST,SGOT 24 U/L (5-34); BILIRUBIN,TOTAL 0.4 mg/dL (0.2-1.2); BLOOD UREA NITROGEN 19 mg/dL (10-20); CALCIUM 8.6 mg/dL (8.4-10.2); CARBON DIOXIDE 24 mmol/L (23-31); CHLORIDE 104 mmol/L (98-107); CREATININE, serum 1.21 mg/dL (0.57-1.11); GLUCOSE 177 mg/dL (70-99); POTASSIUM 4.5 mmol/L (3.5-4.5); SODIUM 140 mmol/L (136-145); TOTAL PROTEIN 7.2 gm/dL (6.2-8.1)
[2022-07-25 18:44] LABS: TROPONIN-I < 0.010 ng/mL (0.00-0.033)
[2022-07-26 05:38] LABS: BASO # 0.1 K/mm3 (0.0-0.2); BASO % 0.5 % (0.0-2.0); EOS # 0.4 K/mm3 (0.0-0.7); EOS % 4.1 % (0.0-4.0); GRAN # 5.4 K/mm3 (1.4-6.5); GRAN % 56.8 % (42.2-75.2); HEMATOCRIT 39.2 % (37.0-47.0); HEMOGLOBIN 12.3 g/dl (12.5-16.0); LYMPH # 2.9 K/mm3 (1.2-3.4); LYMPH % 30.5 % (20.0-51.0); MEAN CELL VOLUME 87 fl (80.0-100.0); MEAN CORPUSCULAR HEMOGLOBIN 27 pg (27-31); MEAN CORPUSCULAR HGB CONC 31 g/dl (33.0-37.0); MEAN PLATELET VOLUME 9.5 fl (7.4-10.4); MONO # 0.8 K/mm3 (0.1-0.6); MONO % 7.9 % (1.7-9.3); PLATELET COUNT 262 K/mm3 (130-400); REDCELL DISTRIBUTION WIDTH-CV 16.4 % (11.5-14.5)
[2022-07-26 05:56] LABS: CALCIUM 8.2 mg/dL (8.4-10.2); CREATININE, serum 1.07 mg/dL (0.57-1.11); POTASSIUM 4.3 mmol/L (3.5-4.5)
[2022-07-26 07:43] VITALS: BP 126/54; PULSE 71; TEMP 97.7
--- NOTE | 2022-07-26 08:01 | NUR ---
Patient received to the unit from ER at 0741. Patient alert and oriented. Patient has history of HTN, DM, Breast cancer and had mastectomy in 2019 and has implantation in both breast. Patient aware of extremity precaution on left upper arm. Noted mild edema at bilateral extremities. Patient c/o of mild chest pain with movement. Patient rated pain level 2/10. 02 2L/NC in use. Patient oriented to room and the use of bed, instructed patient to call for help when needed. Patient's spouse at the bedside.
--- NOTE | 2022-07-26 10:33 | NUR ---
Patient arrived to the unit from ER at 0741. Assessment completed, patient c/o of chest pain . Patient alert and oriented.Patient has history of mastectomy, lower back surgery. VSS, BS 141. Assisted patient to the bathroom with a walker and gait belt to void. Patient had moderate amount of clear yellow urine. Morphine administered IV for pain. See e-mar for notes. Oriented patient to room and the use of call pino. Spouse at the bedside.
--- NOTE | 2022-07-26 10:39 | NUR ---
Several visit attempts; Patient continues to rest, [employer] left "Prayer Card" with a Gentleman at her bedside, possibly her . He nodded "Thank You."
[2022-07-26 11:58] VITALS: BP 118/62; PULSE 68; TEMP 97.8
--- NOTE | 2022-07-26 15:41 | NUR ---
SW met with patient to complete intake. Patient lives at home with her Giuliano ([phone]) whom is at bedside in [place]. Patient reports to being fully independent with her ADL's and IADL's. She verbalizes that she will utilize a cane and a walker prn to assist with mobility. She has no home oxygen needs, but does have a CPAP for PM use, however verbalizes that she does not use it. PCP is and she utilizes the [facility] for prescriptions. Patient verbalizes that she does have a DPOA-HC established listing her but it is located in her email. Patient is planning on returning home once medically ready. Discharge plan: Home
[2022-07-26 15:43] VITALS: BP 123/70; PULSE 86; TEMP 98
--- NOTE | 2022-07-26 16:04 | NUR ---
Patient reports of severe pain at the chest area. Morphine administered.
[2022-07-26 19:56] VITALS: BP 131/64; PULSE 83; TEMP 97.7
[2022-07-26 23:25] VITALS: BP 108/63; PULSE 73; TEMP 97.5
--- NOTE | 2022-07-27 00:09 | NUR ---
SHIFT REPORT FROM GLEN VEGAS. PATIENT IN BED ON ROOM ENTRY. ALERT BUT MILD CONFUSION NOTED AT TIMES. HAD EPISODE OF NAUSEA AND VOMITED AT SHIFT CHANGE. PRN ZOFRAN WAS GIVEN. C/O PAIN FROM "HEAVING" TO HER CHEST AND PRN MORPHINE GIVEN. DENIES ADDITIONAL NEEDS. CALL LIGHT IN REACH.
[2022-07-27 04:04] VITALS: BP 114/63; PULSE 71; TEMP 97.6
--- NOTE | 2022-07-27 06:59 | NUR ---
Report received from the barrera Garza RN and resume care of patient.
[2022-07-27 07:05] VITALS: BP 138/68; PULSE 86; TEMP 97.7
--- NOTE | 2022-07-27 07:36 | NUR ---
0710 ASSESSMENT COMPLETED IN ROOM BY THIS [facility] STUDENT.PATIENT WAS VISUALIZED SITTING UP RIGHT IN BED VIDEO CALLING WITH FAMILY. PATIENT HAD NO COMPLAINTS OF PAIN HOWEVER WAS STILL EXPERIENCING NAUSEA.BURTON BASIN ON BED SIDE TABLE OF PATIENT. INT IN PATIENTS R. AC APPEAR WITHOUT REDNESS,DRAINAGE, OR EDEMA.BED IN LOWEST POSITION.CALL LIGHT WITHIN REACH.PATIENT WAS ORDERING BREAKFAST.PATIENT HAS EXPRESSED TO THE [facility] STUDENT HOPES TO GET DISCHARGED TODAY.
--- NOTE | 2022-07-27 08:20 | NUR ---
Patient awake in bed, alert and oriented. Patient reports of mild discomfort at right upper chest to back. Patient had pain medication earlier this am and states she has had some relief from the medication and rated pain level 3/10. Patient denies episodes of n/v and shortness of breath. Call pino within reach.
[2022-07-27] MEDS ORDERED: TOPROL XL 25MG25 MG PO (08:38)
[2022-07-27] MEDS ORDERED: NORCO 325 MG-51 TAB PO (08:39)
[2022-07-27] MEDS ORDERED: ZOFRAN 4MG T4 MG/TAB PO (08:40)
[2022-07-27 11:20] VITALS: BP 128/66; PULSE 81; TEMP 98.1
--- NOTE | 2022-07-27 14:07 | NUR ---
INT and telemonitor discontinued. Discharge instruction given, patient verbalized understanding. Patient discharged home at 1330.
== END 2022-07-27 13:30 | disposition home or self-care (01) ==
LOC: COL.ER 17:21 → SURG 21:15
PROVIDERS: Emergency Medicine; Student in an Organized Health Care Education/Training Program; ADMIT Internal Medicine
DX: R07.89 Other chest pain (principal); E11.65 Type 2 diabetes mellitus with hyperglycemia; E11.40 Type 2 diabetes mellitus with diabetic neuropathy, unspecified; K21.9 Gastro-esophageal reflux disease without esophagitis; I10 Essential (primary) hypertension; G47.33 Obstructive sleep apnea (adult) (pediatric); R60.0 Localized edema; Z28.310 Unvaccinated for COVID-19; Z28.9 Immunization not carried out for unspecified reason; E78.5 Hyperlipidemia, unspecified; J90 Pleural effusion, not elsewhere classified; Z87.891 Personal history of nicotine dependence; Z79.85 Long-term (current) use of injectable non-insulin antidiabetic drugs; Z79.4 Long term (current) use of insulin; Z98.82 Breast implant status; Z85.3 Personal history of malignant neoplasm of breast; Z79.899 Other long term (current) drug therapy
CPT/HCPCS: C9113; G0378; J1650; J2270; J2405; Q9967